=== PATIENT | female | born 1975 | race Two or more races ===

== ENCOUNTER → 2017-07-04 | Outpatient (REF) | payer OTHER | LOC: M SMT 17:16 | PROVIDERS: ATTEND Nurse Practitioner Women's Health | DX: N39.0 Urinary tract infection, site not specified (principal) ==

== ENCOUNTER → 2017-07-12 | Outpatient (CLI) | payer OTHER ==
--- NOTE | 2017-07-13 16:30 | REP ---
Clinical: Right flank pain. Findings: Kidneys demonstrate nonobstructing renal calculi measuring up to approximately 4 mm in the right kidney and 6 mm in left kidney along with suggestions for small cysts. No perinephric stranding, hydroureteronephrosis or obstructing ureteral calculi identified. Liver, spleen, pancreas, gallbladder, and bilateral adrenal glands are normal for noncontrast evaluation. There is no evidence for bowel obstruction or acute inflammatory process. However, mildly prominent lymph nodes in the pericecal distribution are identified and may warrant colonoscopy. Pelvis demonstrates normal bladder and evidence of prior partial hysterectomy. 3 cm fat containing periumbilical hernia identified. No ascites. No retroperitoneal adenopathy. No abdominal pelvic mass lesion identified. No free air. Abdominal aorta without aneurysm. Musculoskeletal structures demonstrate age-related changes. Impression: 1. Bilateral nephrolithiasis without hydroureteronephrosis or obstructing calculus. 2. Possible renal cysts may warrant ultrasound evaluation. 3. Few pericecal lymph nodes identified in the right lower quadrant may warrant colonoscopy evaluation. Signed by Sai Fields MD 07/13/2017 04:22 P
== END ==
LOC: M RAD 08:45 → EDUNIT# 09:00
PROVIDERS: ATTEND Nurse Practitioner Women's Health
DX: R10.9 Unspecified abdominal pain (principal); N20.0 Calculus of kidney

== ENCOUNTER → 2017-07-20 | Outpatient (REF) | payer OTHER | LOC: M SMT 17:22 | PROVIDERS: ATTEND Nurse Practitioner Women's Health | DX: N39.0 Urinary tract infection, site not specified (principal) ==